=== PATIENT | female | born 1970 | race Caucasian/White ===

== ENCOUNTER 2016-11-24 22:22 | Inpatient (IN) ==
[2016-11-24] MEDS ORDERED: NARCAN IV ONE (22:37)
[2016-11-24] MEDS ORDERED: NS 1,000 ML IV ONE (22:37)
[2016-11-24 22:51] LABS: BE 3.7 mmoll (-3.0-3.0); BLOOD TYPE ARTERIAL; DRAW SITE L RADIAL; METHB 1.3 % (0.0-1.5); PCO2(98.6) 39 mmHg (35-45); PO2(98.6) 63 mmHg (60-100); SAMPLE BLOOD; SAO2 95.2 % (95.0-100.0); THB 15.5 g/dL (11.5-17.4); pH(98.6) 7.46 (7.35-7.45)
[2016-11-24 22:53] LABS: ALLEN TEST YES; MODALITY ROOM AIR
[2016-11-24 23:14] LABS: MANUAL DIFF NEEDED? NO
[2016-11-24 23:19] LABS: BASO% 0.3 % (0.0-0.8); EOS# 0.13 X1000 (0.0-0.7); EOS% 0.7 % (0.0-10.0); HEMATOCRIT 44.7 % (37.0-47.0); HEMOGLOBIN 14.9 g/dL (12.0-16.0); IMM GRAN# 0.06 X1000 (0.0-0.04); IMM GRAN% 0.3 % (0.0-0.5); LYMPH# 4.86 X1000 (1.2-3.4); LYMPH% 24.6 % (20.5-51.1); MCH 29.7 PG (27-31); MCHC 33.3 g/dL (33-37); MCV 89.2 FL (81-99); MONO# 1.24 X1000 (0.11-0.59); MONO% 6.3 % (1.7-9.3); MPV 10.1 FL (7.4-10.4); NEUT% 67.8 % (42.2-75.2); PLT 487 X1000 (130-400); RBC 5.01 XMIL (4.2-5.4)
[2016-11-24 23:21] LABS: BILIRUBIN URINE NEGATIVE (NEGATIVE); BLOOD URINE 3+ (NEGATIVE); COLOR YELLOW; GLUCOSE URINE NEGATIVE (NEGATIVE); LEUKOCYTES URINE TRACE (NEGATIVE); NITRITE URINE POSITIVE (NEGATIVE); PROTEIN URINE TRACE mg/dL (NEGATIVE); SP GRAVITY URINE 1.015; UROBILINOGEN URINE 4+(12 mg/dL)
[2016-11-24 23:38] LABS: CLARITY VERY CLOUDY (CLEAR); URINE SOURCE CATH
[2016-11-24 23:39] LABS: URINE CULTURE PL NEEDED? YES; URINE EPITHELIAL CELLS <10 /HPF (<10); URINE WBC <10 /HPF (<10)
[2016-11-24] MEDS ORDERED: ROCEPHIN 1 GM/NS 1 GM/50 ML IVPB IV ONE (23:39)
[2016-11-24 23:43] LABS: AGAP 9; ALBUMIN 3.7 g/dL (3.5-5.0); ALKALINE PHOSPHATASE 91 U/L (32-104); BUN 15 mg/dL (8-22); CALCIUM 8.8 mg/dL (8.8-10.2); CHLORIDE 101 mmol/L (98-107); COSMO 272; GOT 16 U/L (10-30); GPT 22 U/L (10-36); POTASSIUM 3.6 mmol/L (3.5-5.1); SODIUM 135 mmol/L (136-145); TCO2 26 mmol/L (25-35); TOTAL PROTEIN 7.6 g/dL (6.3-8.3)
[2016-11-25 00:10] LABS: UR AMPHETAMINES QUAL NONE DETECTED (NONE DETECT); UR BARBITUATES QUAL NONE DETECTED (NONE DETECT); UR BENZODIAZEPIN QUAL NONE DETECTED (NONE DETECT); UR CANNABINOIDS QUAL NONE DETECTED (NONE DETECT); UR COCAINE QUAL NONE DETECTED (NONE DETECT); UR MDMA QUAL NONE DETECTED (NONE DETECT); UR METHADONE QUAL NONE DETECTED (NONE DETECT); UR METHAMPHETAMINE QUAL NONE DETECTED (NONE DETECT); UR OPIATES QUAL NONE DETECTED (NONE DETECT); UR OXYCODONE QUAL NONE DETECTED (NONE DETECT); UR PCP QUAL NONE DETECTED (NONE DETECT); UR TCA QUAL NONE DETECTED (NONE DETECT)
[2016-11-25] MEDS ORDERED: NS 1,000 ML IV ONE (00:38)
[2016-11-25] MEDS ORDERED: ZOFRAN IV PRN (00:38)
--- NOTE | 2016-11-25 00:38 | PROVIDER DOCUMENTATION ---
This chart was entered by Ana Paula Alex Scribe, acting as scribe for Tomer Alves MD. HPI-Neurological Disorder - General Chief Complaint: Unresponsive Stated Complaint: unresponsive Time Seen by Provider: 11/24/16 22:29 Source: patient, family Allergies/Adverse Reactions: Patient Allergies Allergy/AdvReac Type Severity Reaction Status Date / Time No Known Allergies Allergy Verified 11/19/16 12:30 Home Medications: Home Medication List Medication Instructions Recorded Confirmed Last Taken Type Butalb/Acetaminophen/Caffeine 1 each PO Q6-8H PRN PRN #20 capsule 06/12/1611/2411/19/16 08:00 Rx [Fioricet 50-300-40 mg Capsule] 1 EACH Lisinopril/Hydrochlorothiazide 1 tab PO QHS 06/27/16 11/24/16 11/19/16 08:00 History [Lisinopril-Hctz 20-12.5 mg Tab] 1 TAB Levothyroxine Sodium [Synthroid] 25 mcg PO DAILY #30 tablet 06/29/16 11/24/16 08:00 Rx 25 MCG Amoxicillin 500 mg PO BID #14 tablet 11/19/16 11/24/16 Unknown Rx Cetirizine [Zyrtec] 10 mg PO DAILY #20 tablet 11/19/16 11/24/16 Unknown Rx D-Methorphan/P-Epd/Bpm [Bromfed Dm 5 ml PO Q4H PRN #120 ml 11/19/16 11/24/16 Unknown Rx Liquid] Methylprednisolone [Medrol Dosepak] 4 mg PO DIRECTED #1 package 11/19/1609/07 Unknown Rx - History of Present Illness-Neuro Nature of Presenting Problem: PT IS A 46YOF PRESENTING TO THE ED C/O UNRESPONSIVE. PTS FAMILY STATES PT WAS SEEN EARLIER TODAY FOR N/V AND SINCE SHE WAS DISCHARGED SHE HAS DONE NOTHING BUT SLEEP. THEY WERE UNABLE TO WAKE HER ALL DAY PER FAMILY. PT IS VERY LETHARGIC BUT WITH STIMULATION SHE WILL OPEN HER EYES BUT NOT ANSWERING QUESTIONS APPROPRIATELY. PUPILS MID-RANGE AND REACTIVE. NO SIGNS OF TRAUMA OR OTHER INJURIES NOTED. NO OTHER COMPLAINTS AT THIS TIME Headache Location: denies: frontal, temporal, occipital, parietal, global, other Severity: reports: moderate Onset/Duration: reports: gradual, 4-6 hours ago Timing: reports: still present Context: reports: found unresponsive by family. denies: head injury, fever, falling Character of Altered Mental Status: reports: disoriented, unresponsive, decreased responsiveness. denies: combative, agitated, seizure activity Any recent trauma/injury?: reports: none Character of Deficits: reports: impaired speech, decreased ability to stand, decreased ability to walk New weakness or altered sensation location:: reports: general (diffuse) Cognitive Baseline: other (TOO ALTERED TO ANSWER QUESTIONS) Associated Symptoms: reports: decreased ability to walk or stand, loss of consciousness, sleepy, trouble walking. denies: headache, seizures, slurred speech Similar Symptoms Previously?: No Recently seen or treated by another doctor?: Yes (TODAY IN ED FOR N/V) Review of Systems - Adult - REVIEW OF SYSTEMS - ADULT Constitutional: reports: no symptoms reported Eyes: reports: no symptoms reported Ears, Nose, Mouth & Throat: reports: no symptoms reported Cardiovascular: reports: no symptoms reported Respiratory: reports: no symptoms reported Gastrointestinal: reports: no symptoms reported Genitourinary: reports: no symptoms reported Musculoskeletal: reports: no symptoms reported Integumentary: reports: no symptoms reported Neurological: reports: see HPI, other (UNRESPONSIVE) Psychiatric: reports: no symptoms reported Endocrine: reports: no symptoms reported Hematologic/Lymphatic: reports: no symptoms reported Allergic/Immunologic: reports: no symptoms reported All Other Systems: Reviewed and Negative Past History - Adult - PAST MEDICAL HISTORY-ADULT Review of Records: reports: Old Records Reviewed, Nursing Assessment Review, Medications Reviewed, Social history reviewed & non-contributory. Major Childhood Illnesses: reports: denies history Cardiovascular: reports: HTN Respiratory: reports: denies history Gastrointestinal: reports: denies history Obstetrical/Gynecological: reports: denies history Genitourinary: reports: denies history Musculoskeletal: reports: denies history Neurological: reports: denies history Endocrine/Immune: reports: thyroid disorder (hypo) Other Conditions: reports: denies history Additional History: blood clots - PRIOR SURGERIES/PROCEDURES Surgical/Procedure History: reports: appendectomy, cholecystectomy, hysterectomy - PRIOR HOSPITALIZATIONS Prior Hospitalizations: reports: none - IMMUNIZATION STATUS Childhood Immunizations: See Nurse Assessment Flu Vaccine: See Nurse Assessment - FAMILY HISTORY Family History: reviewed, not pertinent - SOCIAL HISTORY Smoking: non-smoker Substance Use: none/never, denies Alcohol Use Frequency: never Living Situation: family Physical Exam- Neurological - Physical Exam-Neuro Initial Vital Signs Reviewed: Yes General Appearance: appears well, moderate distress, lethargic, other (SOMOLENT) . negative: alert, no apparent distress Eye Exam: bilateral eye: normal inspection, PERRL, EOMI HENMT: normocephalic/atraumatic, moist mucous membranes, normal ENT inspection, TMs normal, pharynx normal Head Injury: no evidence of injury Neck: supple Respiratory: lungs clear, normal breath sounds, no respiratory distress, no accessory muscle use Cardiovascular: normal peripheral pulses, regular rate, rhythm, no edema, no gallop, no JVD, no murmur Abdominal Exam: normal bowel sounds, non tender, soft, no organomegaly, no pulsatile mass Lymphatic: no adenopathy Extremity: no pedal edema, no calf tenderness, normal capillary refill, pelvis stable. negative: normal range of motion, non-tender, normal gait, normal inspection supervisor education Exam: PERRL. negative: normal hearing, normal speech Coordination/Gait: negative: normal finger to nose, normal gait Motor/Sensory: negative: no motor deficit, no sensory deficit, no pronator drift Neurologic: abnormal cerebellar tests, abnormal supervisor education II-XII, motor weakness, sensory deficit. negative: supervisor education II-XII nml as tested, grossly normal, no motor/ sensory deficits Integumentary: normal color, normal turgor, warm/dry Psych/Mental Status: disoriented x 3, depressed affect. negative: normal mood/ affect, normal thought content, normal thought process, oriented x 3 - Glascow Coma Scale Best Eye Response: (3) open to voice Best Verbal Response: (1) no verbal response Best Motor Response: (4) withdraws to pain Progress - PLAN OF CARE/RESULTS Progress/Plan/Lab Results: Vital Signs - 8 hr 11/24/16 22:40 Pulse Rate 72 Respiratory Rate 20 Blood Pressure 141/94 O2 Sat by Pulse Oximetry 96 Laboratory Results - last 24 hr 11/24/16 11/24/16 11/24/16 22:31 22:42 22:42 WBC RBC Hgb Hct MCV MCH MCHC RDW Std Deviation Plt Count MPV Immature Gran % (Auto) Neut % (Auto) Lymph % (Auto) Gooding % (Auto) Eos % (Auto) Baso % (Auto) Immature Gran # (Auto) Neut # (Auto) Lymph # (Auto) Gooding # (Auto) Eos # (Auto) Baso # (Auto) Specimen Type ARTERIAL Sample Site L RADIAL pH 7.46 H pCO2 39 pO2 63 HCO3 27.6 H Base Excess 3.7 H Oxyhemoglobin 92.1 L ABG O2 Sat (Calculated) 20.0 ABG O2 Saturation 95.2 ABG Carboxyhemoglobin 2.00 ABG Methemoglobin 1.3 Alli Test YES A-a O2 Difference 38.0 Total Hemoglobin 15.5 Lactate 1.50 Blood Gas Modality ROOM AIR FiO2 % 21.0 Sodium Potassium Chloride Carbon Dioxide Anion Gap BUN Creatinine Estimated GFR/1.73 m2 BUN/Creatinine Ratio Glucose Calculated Osmolality Calcium Total Bilirubin AST ALT Alkaline Phosphatase Ammonia Total Protein Albumin Globulin Albumin/Globulin Ratio Lipase TSH Urine Source CATH Urine Color YELLOW Urine Clarity VERY CLOUDY A Urine pH 7.0 Ur Specific [place] 1.015 Urine Protein TRACE A Urine Ketones NEGATIVE Urine Blood 3+ A Urine Nitrite POSITIVE A Urine Bilirubin NEGATIVE Urine Urobilinogen 4+(12 mg/dL) Urine Microscopic RBC 10-20 A Urine WBC TRACE A Urine Microscopic WBC <10 Ur Epithelial Cells <10 Urine Bacteria 4+ Urine Glucose NEGATIVE Salicylates Urine Opiates Screen NONE DETECTED Ur Oxycodone Screen NONE DETECTED Urine Methadone Screen NONE DETECTED Acetaminophen Ur Barbituates Screen NONE DETECTED Ur Tricyclics Screen NONE DETECTED Ur Phencyclidine Scrn NONE DETECTED Ur Amphetamines Screen NONE DETECTED U Methamphetamines Scrn NONE DETECTED Urine MDMA Screen NONE DETECTED U Benzodiazepines Scrn NONE DETECTED Urine Cocaine Screen NONE DETECTED U Cannabinoids Screen NONE DETECTED Plasma/Serum Ethyl Alc 11/24/16 11/24/16 11/24/16 23:05 23:05 23:05 WBC 19.75 H RBC 5.01 Hgb 14.9 Hct 44.7 MCV 89.2 MCH 29.7 MCHC 33.3 RDW Std Deviation 14.7 H Plt Count 487 H MPV 10.1 Immature Gran % (Auto) 0.3 Neut % (Auto) 67.8 Lymph % (Auto) 24.6 Gooding % (Auto) 6.3 Eos % (Auto) 0.7 Baso % (Auto) 0.3 Immature Gran # (Auto) 0.06 H Neut # (Auto) 13.40 H Lymph # (Auto) 4.86 H Gooding # (Auto) 1.24 H Eos # (Auto) 0.13 Baso # (Auto) 0.06 Specimen Type Sample Site pH pCO2 pO2 HCO3 Base Excess Oxyhemoglobin ABG O2 Sat (Calculated) ABG O2 Saturation ABG Carboxyhemoglobin ABG Methemoglobin Alli Test A-a O2 Difference Total Hemoglobin Lactate Blood Gas Modality FiO2 % Sodium 135 L Potassium 3.6 Chloride 101 Carbon Dioxide 26 Anion Gap 9 BUN 15 Creatinine 0.6 Estimated GFR/1.73 m2 > 60 BUN/Creatinine Ratio 25 Glucose 123 H Calculated Osmolality 272 Calcium 8.8 Total Bilirubin 1.20 H AST 16 ALT 22 Alkaline Phosphatase 91 Ammonia Total Protein 7.6 Albumin 3.7 Globulin 4.0 Albumin/Globulin Ratio 1.0 Lipase TSH Urine Source Urine Color Urine Clarity Urine pH Ur Specific [place] Urine Protein Urine Ketones Urine Blood Urine Nitrite Urine Bilirubin Urine Urobilinogen Urine Microscopic RBC Urine WBC Urine Microscopic WBC Ur Epithelial Cells Urine Bacteria Urine Glucose Salicylates Urine Opiates Screen Ur Oxycodone Screen Urine Methadone Screen Acetaminophen Ur Barbituates Screen Ur Tricyclics Screen Ur Phencyclidine Scrn Ur Amphetamines Screen U Methamphetamines Scrn Urine MDMA Screen U Benzodiazepines Scrn Urine Cocaine Screen U Cannabinoids Screen Plasma/Serum Ethyl Alc 11/24/16 11/24/16 11/24/16 23:05 23:05 23:05 WBC RBC Hgb Hct MCV MCH MCHC RDW Std Deviation Plt Count MPV Immature Gran % (Auto) Neut % (Auto) Lymph % (Auto) Gooding % (Auto) Eos % (Auto) Baso % (Auto) Immature Gran # (Auto) Neut # (Auto) Lymph # (Auto) Gooding # (Auto) Eos # (Auto) Baso # (Auto) Specimen Type Sample Site pH pCO2 pO2 HCO3 Base Excess Oxyhemoglobin ABG O2 Sat (Calculated) ABG O2 Saturation ABG Carboxyhemoglobin ABG Methemoglobin Alli Test A-a O2 Difference Total Hemoglobin Lactate Blood Gas Modality FiO2 % Sodium Potassium Chloride Carbon Dioxide Anion Gap BUN Creatinine Estimated GFR/1.73 m2 BUN/Creatinine Ratio Glucose Calculated Osmolality Calcium Total Bilirubin AST ALT Alkaline Phosphatase Ammonia 25 Total Protein Albumin Globulin Albumin/Globulin Ratio Lipase TSH 2.69 Urine Source Urine Color Urine Clarity Urine pH Ur Specific [place] Urine Protein Urine Ketones Urine Blood Urine Nitrite Urine Bilirubin Urine Urobilinogen Urine Microscopic RBC Urine WBC Urine Microscopic WBC Ur Epithelial Cells Urine Bacteria Urine Glucose Salicylates < 3.00 L Urine Opiates Screen Ur Oxycodone Screen Urine Methadone Screen Acetaminophen Ur Barbituates Screen Ur Tricyclics Screen Ur Phencyclidine Scrn Ur Amphetamines Screen U Methamphetamines Scrn Urine MDMA Screen U Benzodiazepines Scrn Urine Cocaine Screen U Cannabinoids Screen Plasma/Serum Ethyl Alc 11/24/16 11/24/16 23:05 23:05 WBC RBC Hgb Hct MCV MCH MCHC RDW Std Deviation Plt Count MPV Immature Gran % (Auto) Neut % (Auto) Lymph % (Auto) Gooding % (Auto) Eos % (Auto) Baso % (Auto) Immature Gran # (Auto) Neut # (Auto) Lymph # (Auto) Gooding # (Auto) Eos # (Auto) Baso # (Auto) Specimen Type Sample Site pH pCO2 pO2 HCO3 Base Excess Oxyhemoglobin ABG O2 Sat (Calculated) ABG O2 Saturation ABG Carboxyhemoglobin ABG Methemoglobin Alli Test A-a O2 Difference Total Hemoglobin Lactate Blood Gas Modality FiO2 % Sodium Potassium Chloride Carbon Dioxide Anion Gap BUN Creatinine Estimated GFR/1.73 m2 BUN/Creatinine Ratio Glucose Calculated Osmolality Calcium Total Bilirubin AST ALT Alkaline Phosphatase Ammonia Total Protein Albumin Globulin Albumin/Globulin Ratio Lipase 20 TSH Urine Source Urine Color Urine Clarity Urine pH Ur Specific [place] Urine Protein Urine Ketones Urine Blood Urine Nitrite Urine Bilirubin Urine Urobilinogen Urine Microscopic RBC Urine WBC Urine Microscopic WBC Ur Epithelial Cells Urine Bacteria Urine Glucose Salicylates Urine Opiates Screen Ur Oxycodone Screen Urine Methadone Screen Acetaminophen < 1.2 L Ur Barbituates Screen Ur Tricyclics Screen Ur Phencyclidine Scrn Ur Amphetamines Screen U Methamphetamines Scrn Urine MDMA Screen U Benzodiazepines Scrn Urine Cocaine Screen U Cannabinoids Screen Plasma/Serum Ethyl Alc Orders Category Date Time Status CHEST-PORTABLE [RAD] Stat Exams 11/24/16 22:36 Taken HEAD W/O CONTRAST [CT] Stat Exams 11/24/16 22:36 Taken ABG [RESP] Routine Lab 11/24/16 22:31 Completed ACETAMINOPHEN [TDM] Stat Lab 11/24/16 23:05 Completed ALCOHOL BLOOD Stat Lab 11/24/16 23:05 Completed AMMONIA [CHEM] Stat Lab 11/24/16 23:05 Completed BLOOD CULTURE [BLDCUL] Stat Lab 11/24/16 23:38 Ordered CBC WITH ELECTRONIC DIFF [HEME] Stat Lab 11/24/16 23:05 Completed CMP [COMPREHENSIVE METABOLIC PANEL] [CHEM] Stat Lab 11/24/16 23:05 Completed LACTATE, PLASMA [CHEM] Stat Lab 11/24/16 23:55 Received LIPASE [CHEM] Stat Lab 11/24/16 23:05 Completed SALICYLATES [TDM] Stat Lab 11/24/16 23:05 Completed TSH Stat Lab 11/24/16 23:05 Completed UA NIMS W/REFLEX CULT PL [URINALYSIS] Stat Lab 11/24/16 22:42 Completed UDS [URINE DRUG SCREEN PL] Stat Lab 11/24/16 22:42 Completed URINE CULTURE [RM] Routine Lab 11/24/16 23:39 Ordered 0.9% Sodium Chloride Inj [Ns] 1,000 ml Med 11/24/16 22:37 Discontinued IV 999 mls/hr CefTRIAXONE 1 GM/NS [Rocephin 1 gm/Ns] Med 11/24/16 23:39 Discontinued 1 gm in 50 ml IV NOW Naloxone [Narcan] Med 11/24/16 22:37 Discontinued 2 mg IV NOW ONE Orders Category Date Time Status CHEST-PORTABLE [RAD] Stat Exams 11/24/16 22:36 Ordered HEAD W/O CONTRAST [CT] Stat Exams 11/24/16 22:36 Ordered ABG [RESP] Routine Lab 11/24/16 22:38 Ordered ACETAMINOPHEN [TDM] Stat Lab 11/24/16 22:39 Ordered ALCOHOL BLOOD Stat Lab 11/24/16 22:37 Ordered AMMONIA [CHEM] Stat Lab 11/24/16 22:38 Ordered CBC WITH ELECTRONIC DIFF [HEME] Stat Lab 11/24/16 22:36 Ordered CMP [COMPREHENSIVE METABOLIC PANEL] [CHEM] Stat Lab 11/24/16 22:36 Ordered LIPASE [CHEM] Stat Lab 11/24/16 22:40 Ordered SALICYLATES [TDM] Stat Lab 11/24/16 22:38 Ordered TSH Stat Lab 11/24/16 22:39 Ordered UA NIMS W/REFLEX CULT PL [URINALYSIS] Stat Lab 11/24/16 22:37 Ordered UDS [URINE DRUG SCREEN PL] Stat Lab 11/24/16 22:38 Uncollected 0.9% Sodium Chloride Inj [Ns] 1,000 ml Med 11/24/16 22:37 Active IV 999 mls/hr Naloxone [Narcan] Med 11/24/16 22:37 Discontinued 2 mg IV NOW ONE Vital Signs - 24 hr 11/24/16 22:40 Pulse Rate 72 Respiratory Rate 20 Blood Pressure 141/94 O2 Sat by Pulse Oximetry 96 Result Diagrams: 11/24/16 23:05 11/24/16 23:05 - XRAY 1 XRAY: Bilateral XRAY Study: Chest Impression: Normal ([facility]ANCHESCA ALVES) - CT/MRI 1 CT Study: Head Impression: Normal (FRANCHESCA ALVES) Departure - Departure Date of Disposition Decision: 11/25/16 Time of Disposition Decision: 00:37 DIAGNOSIS: UTI (urinary tract infection) Qualifiers: Urinary tract infection type: site unspecified Hematuria presence: without hematuria Qualified Code(s): N39.0 - Urinary tract infection, site not specified Altered mental status Qualifiers: Altered mental status type: stupor Qualified Code(s): R40.1 - Stupor Disposition: ADMITTED INPATIENT 09 Certified Medical Emergency: Emergent Condition: Good Referrals and Follow-Ups: None,PCP [Primary Care Provider] - - Critical Care Note This patient required my direct & personal management of CC.: No This chart was documented by the indicated scribe, (Ana Paula Alex Scribe) and accurately reflects the services I performed and decisions made by me, Tomer Alves MD, as attested by the provider's signature.
--- NOTE | 2016-11-25 08:09 | Diag Imaging Result Doc PS360 ---
EXAM: CHEST-PORTABLE HISTORY: ams TECHNIQUE: Single view of the chest was performed portably. COMPARISON: 06/26/2016 FINDINGS: The cardiomediastinal silhouette is within normal limits. The pulmonary vasculature is not congested. Lung volumes are reduced. No infiltrate, effusion, or pneumothorax is appreciated. IMPRESSION: No acute cardiopulmonary abnormality is identified. Electronically signed by Silvia Chaney 11/25/2016 8:06 AM
--- NOTE | 2016-11-25 08:21 | Diag Imaging Result Doc PS360 ---
EXAM: HEAD W/O CONTRAST HISTORY: ams TECHNIQUE: Images were obtained from the skull base to vertex without IV contrast as per standard protocol. COMPARISON: 06/11/2016 FINDINGS: Preliminary interpretation was given by the on-call radiologist. There are no extra-axial collections. There is no evidence for acute infarct or hemorrhage. There is no midline shift or mass effect. There is no hydrocephalus. There is diffuse cerebral atrophy. There has been no significant change from prior study. IMPRESSION: No acute intracranial abnormality is appreciated. Cerebral atrophy . Electronically signed by Silvia Chaney 11/25/2016 8:19 AM
--- NOTE | 2016-11-25 11:03 | HISTORY AND PHYSICAL ---
CHIEF COMPLAINT: Unresponsive. HISTORY OF PRESENTING ILLNESS: This is a 46-year-old female who initially presented to [facility] ER yesterday morning around 9, I believe , with complaints of nausea and vomiting. While in the emergency room, she did not have any active vomiting, according to the ER record. She was given some Zofran and discharged home. The family states that once she got home, she was asleep all day. They could not get her to wake up, and she was found in her bed unresponsive and so they have had her brought back in to the emergency room. When she arrived to the emergency room, she would open her eyes, but not answer any questions. Workup showed a white blood cell count of 19.75. Urinalysis was positive for nitrite, a trace of white blood cells, and 4+ bacteria. Her urine drug screen was negative. She was given a dose of Narcan with no change in her condition. Her serum alcohol level showed none detected. Salicylate level was less than 3, acetaminophen level less than 1.2, so she was admitted for further evaluation and treatment. PAST MEDICAL HISTORY: Hypertension, hypothyroidism, and blood clots. PAST SURGICAL HISTORY: An appendectomy, cholecystectomy, and hysterectomy. FAMILY HISTORY: Noncontributory. SOCIAL HISTORY: She currently lives with family. Denies any tobacco, alcohol, or illicit drug use, according to the ER record. ALLERGIES: She has no known drug allergies. HOME MEDICATIONS: She was taking amoxicillin 500 mg p.o. b.i.d. for a sinusitis and that will be held, Fioricet 1 p.o. q.6-8 hours p.r.n. will be held, Bromfed DM liquid 5 mL p.o. q.4 hours p.r.n. will be held, and a Medrol Dosepak 4 mg as directed will be held. Zyrtec 10 mg p.o. daily, Synthroid 25 mcg p.o. daily, and lisinopril/ hydrochlorothiazide 20/12.5 mg p.o. at bedtime will all be continued. LABORATORY AND IMAGING DATA: Showed a white blood cell count of 19.75, hemoglobin 14.9, hematocrit 44.7, platelets 487,000. ABG with a pH of 7.46, pCO2 of 39, PO2 of 63, bicarbonate 27.6. Sodium 135, potassium 3.6, chloride 101, CO2 of 26, BUN of 15, creatinine 0.6, glucose 123, ammonia of 25, lipase of 20, plasma lactate 1.6, and TSH 2.69. Urinalysis with positive nitrite, a trace of white blood cells, and 4+ bacteria. Urine drug screen was negative. Serum alcohol level showed none detected. Salicylate level less than 3, acetaminophen less than 1.2. Chest x-ray showed no acute cardiopulmonary abnormality identified. Head CT showed no acute intracranial abnormality is appreciated. There was some cerebral atrophy. REVIEW OF SYSTEMS: Unable to obtain. PHYSICAL EXAMINATION: VITAL SIGNS: On arrival, she had a pulse of 72, respirations 20, blood pressure 141/94, saturating 96% on room air. GENERAL: This is a 46-year-old female who is lying in the bed with her eyes closed. Upon calling her name, she did not respond. She did respond with a sternal rub by opening her eyes, but would not answer any questions and then would close her eyes and begins snoring. HEENT: Normocephalic and atraumatic. Pupils are equal, round, and reactive to light. Extraocular movements are intact. The oropharynx and nares are clear. NECK: Supple. LUNGS: Clear to auscultation bilaterally with equal lung expansion and chest wall movement. HEART: Regular rate and rhythm. No murmurs, rubs, or gallops. ABDOMEN: Soft, nontender, and nondistended. Bowel sounds are present x4 quadrants. EXTREMITIES: There is no clubbing, cyanosis, or edema. NEUROLOGICAL: Unable to assess at this time. ASSESSMENT: 1. Altered mental status. 2. Urinary tract infection. 3. Leukocytosis, most likely secondary to being on steroids. 4. Hypertension. PLAN: She was admitted to the medical unit. We are holding her n.p.o. just strictly because of her altered mental status. We will start her home medications as identified tomorrow. Continue Rocephin 1 g IV q.24. Urine culture is pending and blood cultures x2 are pending. Dictated by ARIES Alfaro for Oli Kwon MD cc: ARIES Alfaro MD I have seen and examined the patient and I agree with the above evaluation and care plan. See details of plan in my PN for today. [email or web address] NORMA
[2016-11-25 11:30] LABS: BASO% 0.3 % (0.0-0.8); EOS# 0.09 X1000 (0.0-0.7); EOS% 0.5 % (0.0-10.0); HEMATOCRIT 45.3 % (37.0-47.0); HEMOGLOBIN 15.2 g/dL (12.0-16.0); IMM GRAN# 0.05 X1000 (0.0-0.04); IMM GRAN% 0.3 % (0.0-0.5); LYMPH# 4.34 X1000 (1.2-3.4); LYMPH% 23.9 % (20.5-51.1); MANUAL DIFF NEEDED? YES; MCH 30.2 PG (27-31); MCHC 33.6 g/dL (33-37); MCV 89.9 FL (81-99); MONO% 6.6 % (1.7-9.3); MPV 9.9 FL (7.4-10.4); NEUT% 68.4 % (42.2-75.2); PLT 490 X1000 (130-400); RBC 5.04 XMIL (4.2-5.4)
[2016-11-25 11:42] LABS: AGAP 9; ALBUMIN 3.4 g/dL (3.5-5.0); ALKALINE PHOSPHATASE 91 U/L (32-104); BUN 12 mg/dL (8-22); CALCIUM 8.3 mg/dL (8.8-10.2); CHLORIDE 104 mmol/L (98-107); COSMO 272; GOT 15 U/L (10-30); GPT 18 U/L (10-36); POTASSIUM 3.8 mmol/L (3.5-5.1); SODIUM 136 mmol/L (136-145); TCO2 23 mmol/L (25-35); TOTAL PROTEIN 7.2 g/dL (6.3-8.3)
[2016-11-25 12:04] LABS: LARGE PLATELETS OCCASIONAL; LYMPHS 29 % (21-51); MONO 3 % (1-9)
--- NOTE | 2016-11-25 13:36 | PROGRESS NOTE ---
DATE: 11/25/2016 Yesterday Ms. Villafana was admitted through the ER. Per the ER notes she was unresponsive. She was seen early on yesterday with nausea vomiting and came to the emergency department. Was discharged. Subsequently had to come back. More lethargic and patient not answering questions appropriately. GENERAL EXAM: Ms. Villafana is a 46-year-old female. She is in bed and she is not in any distress.HEENT: Mucosa is slightly dry. Anicteric. Acyanotic. Neck: Supple. Chest: Is clear. Cardiovascular: Regular rate and rhythm. Abdomen: Soft, nontender. Extremities: No pedal edema. GRANITE INSTALLER: Patient is sleepy. Is nonverbal but she is able to open her eyes to verbal command. She does not follow any commands at all. She will try to mumble some words which are not understandable and she would just keep yawning. LABORATORY DATA: WBC is 18.18, hemoglobin is 15.2. Platelet count is 490,000. There is only 68% of bands on peripheral smear. There is occasional large platelets. Chemistry is reviewed. It is completely unremarkable except for calcium is 8.2, bilirubin is 1.2. TSH is 2.69. DIAGNOSTIC STUDIES: A CT scan of the head was done on presentation which shows completely unremarkable CT scan. ASSESSMENT: 1. Altered mental status. Etiology is not apparently clear. I suspect patient might have taken some medication which has clouded her sensorium. Will hydrate her and evaluate her more frequently. 2. Leukocytosis seems to be reactive. Patient was on steroids. Will keep eye. 3. Suspected UTI. 4. Treated for sinusitis. With this altered mental status and white count that is slightly elevated patient does not have any fever and I think she does understand what you say so I do not think she is completely altered. However if her sensorium does not improve we will have to do more testing including an LP because of the history of having been treated for sinusitis just to be sure that she does not have any GRANITE INSTALLER infection. cc: Oli Kwon MD MTDD
[2016-11-25] MEDS ORDERED: HYDROCHLOROTHIAZIDE PO SCH (21:00)
[2016-11-25] MEDS ORDERED: [UNRECOGNIZED DRUG - OTHER] PO SCH (21:00)
[2016-11-25] MEDS ORDERED: LISINOPRIL PO SCH (21:00)
[2016-11-25] MEDS: HYDROCHLOROTHIAZIDE PO SCH (21:36)
[2016-11-25] MEDS: PRINIVIL PO SCH (21:36)
[2016-11-25] MEDS: ROCEPHIN 1 GM/NS 1 GM/50 ML IVPB IV SCH (23:25)
[2016-11-26] MEDS: SYNTHROID PO SCH (06:14)
[2016-11-26 06:30] LABS: MANUAL DIFF NEEDED? NO
[2016-11-26 06:39] LABS: BASO% 0.2 % (0.0-0.8); EOS# 0.09 X1000 (0.0-0.7); EOS% 0.5 % (0.0-10.0); HEMATOCRIT 45.9 % (37.0-47.0); HEMOGLOBIN 15.1 g/dL (12.0-16.0); IMM GRAN# 0.04 X1000 (0.0-0.04); IMM GRAN% 0.2 % (0.0-0.5); LYMPH# 3.93 X1000 (1.2-3.4); LYMPH% 21.1 % (20.5-51.1); MCHC 32.9 g/dL (33-37); MCV 88.3 FL (81-99); MONO# 1.24 X1000 (0.11-0.59); MONO% 6.7 % (1.7-9.3); MPV 10.2 FL (7.4-10.4); NEUT% 71.3 % (42.2-75.2); PLT 519 X1000 (130-400)
[2016-11-26 06:54] LABS: AGAP 11; BUN 13 mg/dL (8-22); CALCIUM 8.5 mg/dL (8.8-10.2); CHLORIDE 104 mmol/L (98-107); COSMO 273; POTASSIUM 3.8 mmol/L (3.5-5.1); SODIUM 136 mmol/L (136-145); TCO2 20 mmol/L (25-35)
[2016-11-26] MEDS: ZYRTEC PO SCH (08:39)
--- NOTE | 2016-11-26 14:50 | PROGRESS NOTE ---
DATE: 11/26/2016 SUBJECTIVE: Today Ms. Villafana continues to be nonverbal. I had a very lengthy conversation with the mother, who told me that Ms Villafana has been going through a stressful period of late; broke up with the who is currently an alcoholic, has 3 kids, an older daughter who seems to have been engaged to somebody she does not like, and a middle son who does not keep very much contact with them, and a daughter about 16 years old who lives with her and the grandma. OBJECTIVE: Vital Signs: Today blood pressure is 119/66, pulse is 60, respirations 16 and temperature 97.7 degrees. General: Ms. Villafana is a 46-year-old female. She was in bed, was not in any distress. HEENT: Mucosa is pink and mildly dry. Anicteric. Acyanotic. Neck: Supple. Chest: Good air entry bilateral. No crepitations. No rhonchi. Cardiovascular: Regular rate and rhythm. Abdomen: Soft. No hepatosplenomegaly. Extremities: No pedal edema. PLACEMENT SPECIALIST: Patient is sleepy, but I think she just has the eyes open. She understand what is going on. She was able to stand upon command for me to examine her and she was able to lift her hands up on commands. She has been moving to try to cover herself, so I think she understands what is going on, she knows what is going on. LABORATORY DATA: WBC is 18.63, hemoglobin is 15.2, platelet count of 519. Chemistry is reviewed. CO2 is 20 and the rest is unremarkable. Blood gases were done on the first day and have not been repeated. Blood cultures prelim have been negative. Urine shows gram-negative qing. The patient is currently on ceftriaxone and Synthroid and also lisinopril. ASSESSMENT: 1. Altered mental status. Etiology is unclear. We think patient has significant stresses in her life and this probably is a form of severe depression. Unsure if the patient has taking any medication to have clouded her sensorium, but I am quite sure that she seems to understand what is going on. She probably is just refusing to interact. 2. Gram-negative qing urinary tract infection. We will continue with the antibiotics. 3. History of recently treated sinusitis. 4. Suspected severe depression. We are going to start the patient on Lexapro. PLAN: Today, we will continue with the current antibiotics. We will continue with the IV fluids. I am going to discontinue with the Bynum catheter and start the patient on some diet when her sensorium is clear. cc: Oli Kwon MD
[2016-11-26] MEDS ORDERED: LEXAPRO PO SCH (21:00)
[2016-11-26] MEDS: HYDROCHLOROTHIAZIDE PO SCH (21:04)
[2016-11-26] MEDS: PRINIVIL PO SCH (21:05)
[2016-11-26] MEDS ORDERED: D5 1/2 NS 1,000 ML IV SCH (21:26)
[2016-11-26] MEDS: ROCEPHIN 1 GM/NS 1 GM/50 ML IVPB IV SCH (23:48)
[2016-11-27] MEDS: SYNTHROID PO SCH (08:06)
[2016-11-27] MEDS: ZYRTEC PO SCH (08:08)
[2016-11-27 08:13] LABS: HEMATOCRIT 49.1 % (37.0-47.0); MANUAL DIFF NEEDED? YES; MCH 30.1 PG (27-31); MCHC 32.6 g/dL (33-37); MCV 92.3 FL (81-99); MPV 10.5 FL (7.4-10.4); PLT 385 X1000 (130-400); RBC 5.32 XMIL (4.2-5.4)
[2016-11-27 08:47] LABS: AGAP 14; ALBUMIN 3.1 g/dL (3.5-5.0); ALKALINE PHOSPHATASE 96 U/L (32-104); BUN 14 mg/dL (8-22); CALCIUM 8.3 mg/dL (8.8-10.2); CHLORIDE 105 mmol/L (98-107); COSMO 274; GOT 25 U/L (10-30); GPT 20 U/L (10-36); POTASSIUM 3.8 mmol/L (3.5-5.1); SODIUM 136 mmol/L (136-145); TCO2 17 mmol/L (25-35); TOTAL PROTEIN 7.1 g/dL (6.3-8.3)
[2016-11-27 09:38] LABS: LYMPHS 30 % (21-51); MONO 8 % (1-9)
[2016-11-27 10:29] LABS: BE 0.5 mmoll (-3.0-3.0); BLOOD TYPE ARTERIAL; O2(CT) 20.6 mL/dL (15.0-23.0); PCO2(98.6) 31 mmHg (35-45); PO2(98.6) 79 mmHg (60-100); SAMPLE BLOOD; SAO2 97.7 % (95.0-100.0); THB 15.4 g/dL (11.5-17.4); pH(98.6) 7.48 (7.35-7.45)
[2016-11-27 10:33] LABS: ALLEN TEST YES; DRAW SITE L RADIAL; MODALITY ROOM AIR
--- NOTE | 2016-11-27 12:52 | Diag Imaging Result Doc PS360 ---
EXAM: MRI BRAIN W/O CONTRAST HISTORY: AMS TECHNIQUE: Multisequence, multiplanar images of the brain were obtained without contrast as per standard protocol. COMPARISON: None. FINDINGS: There is a large area of restricted diffusion involving the left MCA vascular territory consistent with acute infarct. There is cortical edema and mass effect upon the left lateral ventricle. There is 2 to 3 mm left to right midline shift. There are areas of decreased left parietal lobe signal on gradient echo images which may indicate hemorrhage. There is no abnormal signal within the cerebellum or brainstem. There is diffuse cerebral atrophy. These findings were discussed with Dr. Kwon by telephone IMPRESSION: Large acute left MCA infarct with possible areas of hemorrhage. 2 to 3 mm [id number] midline shift. Electronically signed by Silvia Chaney 11/27/2016 12:49 PM
--- NOTE | 2016-11-27 13:22 | PROGRESS NOTE ---
DATE: 11/27/2016 Today Ms. Villafana continues to be pretty much the same. Continues to be nonverbal , unresponsive, eyes open. Seems to be moving very actively the left side and not the right side. OBJECTIVE: Vital signs: Blood pressure is 147/84, pulse of 56, respiration is 17, temperature 97.8 degrees. Patient is saturating 95% on room air. General: Ms. Villafana is a 46-year-old female. She is in bed. Does not seems to be in any remarkable distress. HEENT: Mucosa is pink and moist. Anicteric. Acyanotic. Neck: Supple. Chest: Good air entry bilaterally. No crepitations. No rhonchi. Cardiovascular: Regular rate and rhythm. Abdomen: Soft. Extremities: No pedal edema. FARM PRODUCTS SHIPPER: Patient is awake, but is nonverbal. Seems to be moving very actively the left side, not so the right side. She withdraw very actively to painful stimulation. LABORATORY DATA: WBC is down to 16.92, hemoglobin is 16.0, platelet count 385, 000. Chemistry is reviewed. Bicarb is 17. Rest of chemistry is unremarkable. A urinalysis has shown E. coli which is sensitive to the antibiotic that the patient is on. I ordered an MRI of the brain because the initial CT scan was unremarkable and this has come back positive. I did order LP initially because we did not know what was going on to rule out any F[employer]IP[employer] infection but I have called Radiology to stop this. ASSESSMENT: 1. Altered mental status secondary to underlying stroke. 2. Large left hemispheric stroke with possible hemorrhagic transformation and a midline shift. I have consulted the stroke network in [place] and I am pending their response if we can transfer the patient over there. We also pending the official report on the MRI. I have discussed the case with the radiologist environmental research project manager Dr Anderson and we will see if we can get a CTA on her cerebral and the neck arteries. 3. E. coli UTI. Patient is currently on antibiotics. 4. History of recently treated sinusitis. So today as I said, I ordered an MRI because of non convincing physical exams and the fact the patient continues to be altered which has shown a huge left hemispheric stroke. We pending the stroke network to call us back. I have also consulted Steve Martínez just in case the stroke network does not take her. We will move her to the main campus because she has a risk of herniation and will need to be intubated and Pulmonary Medicine and Neurology will need to see her which we do not have over here. For now, we are going to discontinue the antihypertensive medications because we will need her blood pressure to be a little higher to allow for adequate perfusion of the penumbra. We will also discontinue the dextrose containing fluid so we do not create any more cerebral edema. Critical time spent is 1 hour. cc: Oli Kwon MD MTDD
--- NOTE | 2016-11-27 13:57 | Diag Imaging Result Doc PS360 ---
EXAM: HEAD W/O CONTRAST HISTORY: CVA. Left MCA infarct TECHNIQUE: Images were obtained from the skull base to vertex without IV contrast as per standard protocol. COMPARISON: 11/24/2016 FINDINGS: There is a new large area of hypodensity with sulcal edema and effacement within the left MCA territory with mass effect upon the left lateral ventricle and mild [id number] midline shift suggesting early subfalcine herniation. Mild hyperdensity within the left parietal lobe image 37 sequence 2 may correspond with the area of suspected hemorrhage noted on MRI. There are no extra-axial collections. No hydrocephalus. IMPRESSION: Large left MCA infarct with midline shift consistent with mild subfalcine herniation left to right. . It is difficult to exclude a subtle area of hemorrhage left parietal lobe. Electronically signed by Silvia Chaney 11/27/2016 1:55 PM
[2016-11-27 14:20] LABS: URINE CULTURE PL NEEDED? NO; URINE SOURCE CATH
[2016-11-27 14:22] LABS: BILIRUBIN URINE NEGATIVE (NEGATIVE); BLOOD URINE 4+ (NEGATIVE); CLARITY SLIGHTLY CLOUDY (CLEAR); COLOR YELLOW; GLUCOSE URINE NEGATIVE (NEGATIVE); LEUKOCYTES URINE NEGATIVE (NEGATIVE); NITRITE URINE NEGATIVE (NEGATIVE); PROTEIN URINE TRACE mg/dL (NEGATIVE); SP GRAVITY URINE 1.015; UROBILINOGEN URINE 2+(4 mg/dL)
[2016-11-27 14:23] LABS: URINE EPITHELIAL CELLS >10 /HPF (<10); URINE RBC 20-40 /HPF (<10); URINE WBC <10 /HPF (<10)
[2016-11-27 14:24] LABS: URINE CAST GRANULAR PRESENT /LPF
[2016-11-27 14:27] VITALS: BP 130/84
--- NOTE | 2016-11-27 14:43 | Diag Imaging Result Doc PS360 ---
EXAM: MRA BRAIN W/O CONTRAST HISTORY: LEFT MCA INFARCT TECHNIQUE: 3-D time of flight images were obtained of the [place]. COMPARISON: None. FINDINGS: The intracranial internal carotid arteries appear patent. The left middle cerebral artery appears somewhat diminished in caliber with vascular occlusion or partial occlusion at the mid M1 segment. There is there is flow within the insular branches of the MCA on the left. The anterior cerebral arteries, right middle cerebral artery, basilar artery and posterior cerebral arteries show no abnormalities. There is blood flow within the insular branches of the left MCA . Findings were discussed with physician's child development assistant. Impression: Findings suspicious for at least partial vascular occlusion of the left MCA, M1 segment. Electronically signed by Silvia Chaney 11/27/2016 2:40 PM
--- NOTE | 2016-11-27 22:21 | DISCHARGE SUMMARY ---
ADMISSION DATE: 11/25/2016 DISCHARGE DATE: 11/27/2016 ADMISSION DIAGNOSES: 1. Altered mental status. 2. Urinary tract infection. 3. Leukocytosis most likely secondary to being on steroids recently. 4. Hypertension. DISCHARGE DIAGNOSES: 1. Large acute left middle cerebral artery infarct with possible areas of hemorrhage. 2. Urinary tract infection. 3. Leukocytosis likely secondary to steroid use, recently improved. 4. Hypertension. SUMMARY OF FINDINGS: This is a 46-year-old, female who initially presented to the emergency room on 11/24/2016 at 9 a.m. in the morning with complaints of nausea and vomiting. While she was in the emergency room she did not have any vomiting at that time according to the ER record. She was given some Zofran and discharged home as she had apparently about a week prior continued on some amoxicillin and a Medrol Dosepak for sinusitis. She went home and when she got home she slept all day and the family could not get her to wake up, so they brought her back to the emergency room. When she arrived in the emergency room, she would open her eyes but would not answer any questions. Her workup showed a white blood cell count of 19.75. She had a urinalysis that was positive for nitrites, a trace of white blood cells, and 4+ bacteria. Urine drug screen was negative. She was given a dose of Narcan in the emergency room with no change in her condition also. Her serum alcohol level showed none detected. We did a CT of the head on 11/24/2016 that showed no acute intracranial abnormality appreciated and cerebral atrophy. She was admitted, placed on IV antibiotics, IV hydration and she continued to be altered. On the first day, 11/25/2016, she required a sternal rub. She would open her eyes momentarily and then would close them back. Yesterday she would open her eyes to verbal stimuli, remained altered and etiology was unclear. It was thought that the patient had some significant stresses in her life and that she may be in some form of severe depression. She had not been taking any medications that clouded her sensorium that we were aware of but again that was unclear also. It seemed as if she was just refusing to interact with staff. We continued her antibiotics, IV fluids and today she seemed a little more alert, responding with blinking but still not verbal and so we obtained a brain MRI that showed a large acute left MCA infarct with possible areas of hemorrhage 2-3 mm left- to-right midline shift. We did a brain MRA that showed findings suspicious for at least partial vascular occlusion of the left MCA and M1 segment so she is being transferred to [facility] for further evaluation and treatment, and has been accepted with Neurology to follow. Discharge medications will be addressed once she arrives to [facility]. She remains NPO at this time. She appears to be aphasic. She is able to follow commands. I asked her a question and told her to blink once if she understood what I was saying and she closed her eyes and opened them slowly to let me know that she did understand. Family is currently at bedside and is aware of the findings and the transfer, and are in complete agreement. So, this patient will be transferred to [facility] for further evaluation and treatment. Dictated by ARIES Alfaro for Oli Kwon MD cc: ARIES Alfaro MD
[2016-11-28 09:52] LABS: HIV ANTIBODY SCREEN SEE COMMENTS
== END 2016-11-27 15:46 | disposition short-term general hospital (02) ==
LOC: P.ED 22:22 → P.MEDSURG 11-25 00:57 → SUATTDRO 11-25 00:57
PROVIDERS: ATTEND Internal Medicine